=== PATIENT | male | born 1960 | race Caucasian/White ===

== ENCOUNTER 2017-02-14 18:10 | Emergency (ER) | payer BC ==
[~2017-02-14 18:10] MED LIST: ALBUTEROL MININEB NEB; AMLODIPINE BESY10 MG PO; AZITHROMYCIN250 MG PO; BISOPROLOL-HCT1 EAC1 PO; BREO ELLIPTA 21 EACH INH; DOXYCYCLINE PO; LOSARTAN POTASS50 MG PO; OXYGEN; PREDNISONE PO; PROAIR HFA8.5 GM INH
[2017-02-14] MEDS ORDERED: SPIRIVA18 MCG INH (18:23)
== END 2017-02-14 19:59 | disposition home or self-care (01) ==
LOC: SED 18:10
DX: M70.21 Olecranon bursitis, right elbow (principal); I10 Essential (primary) hypertension; J45.909 Unspecified asthma, uncomplicated; F17.210 Nicotine dependence, cigarettes, uncomplicated; Z79.899 Other long term (current) drug therapy
CPT/HCPCS: 20605; 99283